=== PATIENT | male | born 1950 | race Caucasian/White ===

== ENCOUNTER 2023-04-01 11:01 | Outpatient (REF) | payer MEDICARE, SELFPAY | END 2023-04-01 11:02 | disposition home or self-care (01) | LOC: HO.BBR 11:01 | PROVIDERS: Visit Provider Internal Medicine | DX: D45 Polycythemia vera (principal) | CPT/HCPCS: 85014; 85018; 99195 ==

== ENCOUNTER 2023-04-08 14:01 | Outpatient (REF) | payer MEDICARE, SELFPAY | END 2023-04-08 14:02 | disposition home or self-care (01) | LOC: HO.BBR 14:01 | PROVIDERS: Visit Provider Internal Medicine | DX: D45 Polycythemia vera (principal) | CPT/HCPCS: 85018 ==

== ENCOUNTER 2023-04-19 14:58 | Outpatient (REF) | payer MEDICARE, SELFPAY | END 2023-04-19 14:59 | disposition home or self-care (01) | LOC: HO.BBR 14:58 | PROVIDERS: Visit Provider Internal Medicine | DX: D45 Polycythemia vera (principal) | CPT/HCPCS: 85018; 99195 ==

== ENCOUNTER 2023-05-17 11:01 | Outpatient (REF) | payer MEDICARE, SELFPAY | END 2023-05-17 11:02 | disposition home or self-care (01) | LOC: HO.BBR 11:01 | PROVIDERS: Visit Provider Internal Medicine | DX: D45 Polycythemia vera (principal) | CPT/HCPCS: 85014; 85018; 99195 ==

== ENCOUNTER 2023-06-02 14:01 | Outpatient (REF) | payer MEDICARE, SELFPAY | END 2023-06-02 14:02 | disposition home or self-care (01) | LOC: HO.BBR 14:01 | PROVIDERS: Visit Provider Internal Medicine | DX: D45 Polycythemia vera (principal) | CPT/HCPCS: 85014; 85018; 99195 ==

== ENCOUNTER 2023-06-16 14:03 | Outpatient (REF) | payer MEDICARE, SELFPAY | END 2023-06-16 14:04 | disposition home or self-care (01) | LOC: HO.BBR 14:03 | PROVIDERS: Visit Provider Internal Medicine | DX: D45 Polycythemia vera (principal) | CPT/HCPCS: 85018; 99195 ==

== ENCOUNTER 2023-06-29 14:01 | Outpatient (REF) | payer MEDICARE, SELFPAY | END 2023-06-29 14:02 | disposition home or self-care (01) | LOC: HO.BBR 14:01 | PROVIDERS: Visit Provider Internal Medicine | DX: D75.1 Secondary polycythemia (principal) | CPT/HCPCS: 85014; 85018; 99195 ==

== ENCOUNTER 2023-07-14 13:56 | Outpatient (REF) | payer MEDICARE, SELFPAY | END 2023-07-14 13:57 | disposition home or self-care (01) | LOC: HO.BBR 13:56 | PROVIDERS: Visit Provider Internal Medicine | DX: D75.1 Secondary polycythemia (principal) | CPT/HCPCS: 85018; 99195 ==

== ENCOUNTER 2023-07-27 13:58 | Outpatient (REF) | payer MEDICARE, SELFPAY | END 2023-07-27 13:59 | disposition home or self-care (01) | LOC: HO.BBR 13:58 | PROVIDERS: Visit Provider Internal Medicine | DX: D75.1 Secondary polycythemia (principal) | CPT/HCPCS: 85014; 85018; 99195 ==

== ENCOUNTER 2023-08-17 14:06 | Outpatient (REF) | payer MEDICARE, SELFPAY | END 2023-08-17 14:07 | disposition home or self-care (01) | LOC: HO.BBR 14:06 | PROVIDERS: Visit Provider Internal Medicine | DX: D75.1 Secondary polycythemia (principal) | CPT/HCPCS: 85014; 85018; 99195 ==

== ENCOUNTER 2023-10-19 14:00 | Outpatient (REF) | payer MEDICARE, SELFPAY | END 2023-10-19 14:01 | disposition home or self-care (01) | LOC: HO.BBR 14:00 | PROVIDERS: Visit Provider Internal Medicine | DX: D75.1 Secondary polycythemia (principal) | CPT/HCPCS: 85018 ==

== ENCOUNTER 2024-02-28 14:03 | Outpatient (REF) | payer MEDICARE, SELFPAY | END 2024-02-28 14:04 | disposition home or self-care (01) | LOC: HO.BBR 14:03 | PROVIDERS: Visit Provider Internal Medicine | DX: D45 Polycythemia vera (principal) | CPT/HCPCS: 85018; 99195 ==

== ENCOUNTER 2024-04-04 12:15 | Outpatient (REF) | payer MEDICARE, SELFPAY | END 2024-04-04 12:16 | disposition home or self-care (01) | LOC: HO.BBR 12:15 | PROVIDERS: Visit Provider Internal Medicine | DX: D45 Polycythemia vera (principal) | CPT/HCPCS: 85018; 99195 ==

== ENCOUNTER 2024-07-24 14:10 | Outpatient (REF) | payer MEDICARE, SELFPAY | END 2024-07-24 14:11 | disposition home or self-care (01) | LOC: HO.BBR 14:10 | PROVIDERS: Visit Provider Internal Medicine | DX: D45 Polycythemia vera (principal) | CPT/HCPCS: 85014; 85018; 99195 ==

== ENCOUNTER 2024-08-16 13:08 | Outpatient (REF) | payer MEDICARE, SELFPAY ==
--- OUTSIDE RECORDS SUMMARY | 2024-08-16 13:20 | XMS_ITS | Clinical Summary ---
Author Organization [facility] Address [address] [place] [address] Care Team Providers Care Signal Person Name Role Phone Andrea Guaman MD Primary Care Provider [phone] Allergies Active Allergy Reactions Criticality Noted Date Comments Penicillins 03/01/2023 Medications No known medications Active Problems No known active problems Social History Tobacco Use Types Packs/Day Years Used Date Smoking Tobacco: Never Smokeless Tobacco: Never Tobacco Cessation:Counseling Given: Not Answered Alcohol Use Standard Drinks/Week Comments Yes 0 (1 standard drink = 0.6 oz pur e alcohol) Sex and Gender Information Value Date Recorded Sex Assigned at Male 03/01/2023 10:32 AM EDT Gender Identity Not on file Sexual Orientation Not on file Job Start Date Occupation Industry Not on file Not on file Not on file Last Filed Vital Signs Vital Sign Reading Time Taken Comments Blood Pressure 127/74 12/05/2023 11:53 AM EDT Pulse 73 12/05/2023 11:53 AM EDT Temperature 36.6 ??C (97.8 ??F) 12/05/2023 11:53 AM E DT Respiratory Rate - - Oxygen Saturation 99% 12/05/2023 11:53 AM EDT Inhaled Oxygen Concentration - - Weight 59.9 kg (132 lb) 12/05/2023 11:53 AM EDT Height - - Body Mass Index - - Plan of Treatment Health Maintenance Due Date Last Done Comments Hepatitis C Screening 1950 Pneumococcal Vaccine (1 of 2 - PCV) 1956 Depression Screening 1962 Preventative Health Evaluation 1968 Shingrix-Zoster Vaccine (1 of 2) 1969 Colon Cancer Screening (Colonoscopy) 1995 Fall Risk Assessment 2015 COVID-19 Vaccine (5 - 2024-25 season) 2024 04/22/2023, 07/09/2021, 10/02/2020, Additional history exists Influenza Vaccine (#1) 2024 , 03/24/2022, 08/29/2019 RSV Adult > 60+ Yrs or (1 - 1-dose 75+ series) 2025 DTap / Tdap / Td (2 - Td or Tdap) 11/30/2030 11/30/2020 Hepatitis B Vaccines Aged Out No long er eligible based on patient's age to complete this topic RSV Ped < 20 months Aged Out No longe r eligible based on patient's age to complete this topic Care Teams Signal Person Relationship Specialty Start Date End Date Andrea Guaman MD [address] [place] [phone] PCP - General Family Medicine 03/01/23
--- OUTSIDE RECORDS SUMMARY | 2024-08-16 13:20 | XMS_ITS | Clinical Summary ---
Author Organization [facility] Address [address] [place] [address] Care Team Providers Care Manganese Heater Name Role Phone Pcp, No MD Primary Care Provider Unavailabl e Allergies Active Allergy Reactions Criticality Noted Date Comments Penicillins 11/24/2022 Social History Tobacco Use Types Packs/Day Years Used Date Smoking Tobacco: Never Assessed Sex and Gender Information Value Date Recorded Sex Assigned at Not on file Legal Sex Male 11:25 AM EST Gender Identity Not on file Sexual Orientation Not on file Plan of Treatment Health Maintenance Due Date Last Done Comments CT Colonography 1950 Colonoscopy 1950 Colorectal Cancer Screening 1950 FIT-DNA (Cologuard) 1950 FIT 1950 FOBT 1950 Flex Sigmoidoscopy - 5y 1950 HIV Screening 1950 Medicare Annual Wellness (AWV) 1950 Hepatitis C Screening 1968 Zoster Vaccines (1 of 2) 2000 Pneumococcal Vaccine, 65+ Years (1 of 1 - PCV) 2015 COVID-19 Vaccine ( season) 2024 04/22/2023, 07/09/2021, 10/02/2020, Additional history exists Influenza Vaccine (#1) 2024 , 03/24/2022, 08/29/2019 DTaP,Tdap,and Td Vaccines (2 - Td or Tdap) 11/30/2030 11/30/2020 HPV Vaccines Aged Out No longer eligi ble based on patient's age to complete this topic Hepatitis A Vaccines Aged Out No long er eligible based on patient's age to complete this topic Meningococcal Vaccine Aged Out No lillie luigi eligible based on patient's age to complete this topic Insurance MEDICARE PART A & B Care Teams Manganese Heater Relationship Specialty Start Date End Date Becky William MD [address] [place] [address] PCP - General Internal Medicine 01/31/18
--- OUTSIDE RECORDS SUMMARY | 2024-08-16 13:20 | XMS_ITS | Encounter Summary ---
Author Organization [facility] Address [address] [place] [address] Care Team Providers Care Loader Machine Name Role Phone Andrea Guaman DO Primary Care Provider [phone] Encounter Details Date Type Department Care Team (Late st Contact Info) Description 07/24/2024 Telephone [facility] Hematology Oncology [address] [place] [address] Ute Bonilla MD [address] [place] [address] Social History Tobacco Use Types Packs/Day Years Used Date Smoking Tobacco: Never Smokeless Tobacco: Never Alcohol Use Standard Drinks/Week Comments Yes 0 (1 standard drink = 0.6 oz pur e alcohol) Sex and Gender Information Value Date Recorded Sex Assigned at Not on file Legal Sex Male 1:32 PM EST Gender Identity Not on file Sexual Orientation Not on file documented as of this encounter Progress Notes * Abhijit Davis MA - 07/24/2024 3:51 PM EST Relayed message to Dr. Bonilal, he agreed to changing therapeutic phlebotomy order to monthly draws. Returned call to pt and informed him of this plan, pt agrees. New order has been faxed over to [facility]. * Namita Sierra - 07/24/2024 3:10 PM EST Patient requesting adjustment to an open order for phlebotomy as he was not able to get enough out today and the current order stands at every 3 months documented in this encounter Plan of Treatment Upcoming Encounters Date Type Department Care Team (Late st Contact Info) Description 03/13/2025 11:00 AM EDT Office Visit [facility] Hematology Oncology [address] [place] [phone] Ute Bonilla MD [address] [place] [address] documented as of this encounter Visit Diagnoses Not on filedocumented in this encounter Care Teams Loader Machine Relationship Specialty Start Date End Date Andrea Guaman DO [address] [place], [place] PCP - General 03/01/23 documented as of this encounter
--- OUTSIDE RECORDS SUMMARY | 2024-08-16 13:20 | XMS_ITS | Clinical Summary ---
Author Organization [facility] Address [address] [place] [address] Phone Care Team Providers Care Route Agent Name Role Phone Andrea Guaman DO Primary Care Provider [phone] Allergies Active Allergy Reactions Criticality Noted Date Comments Penicillins 03/01/2023 Medications No known medications Encounters Date Type Department Care Team Description 07/24/2024 Telephone [facility] Hematology Oncology [address] [place] [address] Ute Bonilla MD 06/12/2024 11:00 AM EST Office Visit [facility] Hematology Oncology [address] [place] [address] Ute Bonilla MD Polycythemia vera (CMS/HCC) (Primary Dx) from Last 3 Months Immunizations Name Administration Dates Next Due Pfizer SARS-CoV-2 COVID-19, mRNA, LNP-S, preservative free 07/09/2021,10/02/2020,09/11/2020 Social History Tobacco Use Types Packs/Day Years [...] on file Sexual Orientation Not on file Obstetrics History Last Filed Vital Signs Vital Sign Reading Time Taken Comments Blood Pressure 126/70 06/12/2024 11:22 AM EST Pulse 58 06/12/2024 11:22 AM EST Temperature 36.6 ??C (97.8 ??F) 06/12/2024 11:[address] Respiratory Rate - - Oxygen Saturation 100% 06/12/2024 11:22 AM EST Inhaled Oxygen Concentration - - Weight 60.8 kg (134 lb) 06/12/2024 11:22 AM EST Height - - Body Mass Index - - Plan of Treatment Upcoming Encounters Date Type Department Care Team (Late st Contact Info) Description 03/13/2025 11:00 AM EDT Office Visit [facility] Hematology Oncology [address] [place] [phone] Ute Bonilla MD [address] [place] [address] Health Maintenance Due Date Last Done Comments Pneumococcal Vaccine: 50+ Years (1 of 2 - PCV) 1969 Zoster Vaccines (1 of 2) 1969 Cholesterol Screening (Lipid Panel) 06/01/2022 Colorectal Cancer Screening: Colonoscopy 06/01/2022 Depression Screening 06/01/2022 Falls Risk Assessment 06/01/2022 Hepatitis C Screening 06/01/2022 Social Influencers of Health Screening 06/01/2022 Medicare Annual Wellness Visit 06/18/2023 06/18/2022 COVID-19 Vaccine ( season) 2024 04/22/2023, 03/24/2022, 07/09/2021, Additional history exists Influenza Vaccine (#1) 2024 , 03/24/2022, 08/29/2019 RSV Immunization Patients 60+ Years Old (1 - 1-dose 75+ series) 2025 DTaP,Tdap,and Td Vaccines (2 - Td or Tdap) 11/30/2030 11/30/2020 HIB Vaccines Aged Out No longer eligi ble based on patient's age to complete this topic HPV Vaccines Aged Out No longer eligi ble based on patient's age to complete this topic Hepatitis A Vaccines Aged Out No long er eligible based on patient's age to complete this topic Hepatitis B Vaccines Aged Out No long er eligible based on patient's age to complete this topic IPV Vaccines Aged Out No longer eligi ble based on patient's age to complete this topic MMR Vaccines Aged Out No longer eligi ble based on patient's age to complete this topic Meningococcal ACWY Vaccine Aged Out N o longer eligible based on patient's age to complete this topic Meningococcal B Vacine Aged Out No lo nger eligible based on patient's age to complete this topic RSV Immunization Patients Under 20 months Aged Out No longer eligible based on patient's age to complete this topic Varicella Vaccines Aged Out No longer eligible based on patient's age to complete this topic Procedures Procedure Name Priority Date/Time Associated Diagnosis Comments ..MISCELLANEOUS REFERENCE LAB TEST 06/12/2024 ..MISCELLANEOUS REFERENCE LAB TEST 06/12/2024 ..MISCELLANEOUS REFERENCE LAB TEST 06/12/2024 ..MISCELLANEOUS REFERENCE LAB TEST 06/12/2024 from Last 3 Months Results * Miscellaneous reference lab test (06/12/2024) Only the most recent of4 resultswithin the time period is included. us Provider Onbase MD LAB BLOOD ORDERABLES Final Re sult from Last 3 Months Insurance MEDICARE [facility] Care Teams Route Agent Relationship Specialty Start Date End Date Andrea Guaman DO [address] [place] [address] PCP - General 03/01/23
== END 2024-08-16 13:09 | disposition home or self-care (01) ==
LOC: HO.BBR 13:08
PROVIDERS: Visit Provider Internal Medicine
DX: D45 Polycythemia vera (principal)
CPT/HCPCS: 85018; 99195

== ENCOUNTER 2024-09-27 13:05 | Outpatient (REF) | payer MEDICARE, SELFPAY | END 2024-09-27 13:06 | disposition home or self-care (01) | LOC: HO.BBR 13:05 | PROVIDERS: Visit Provider Internal Medicine | DX: D45 Polycythemia vera (principal) | CPT/HCPCS: 85014; 85018; 99195 ==

== ENCOUNTER 2025-01-29 12:59 | Outpatient (REF) | payer MEDICARE, SELFPAY ==
--- OUTSIDE RECORDS SUMMARY | 2025-01-29 13:46 | XMS_ITS ---
Author Name [facility] Organization Unknown Encounters Encounter Type Encounter Reason Primary Diagnosis Location Date Ambulatory Chronic sinusiti s, unspecified [facility] 11/24/2022 Care Team Organization Name Specialty Phone Email Start Date End Da te [facility] NO PCP Primary Care 11/24/2022 [facility] PCP,No Primary Care 11/24/2022
--- OUTSIDE RECORDS SUMMARY | 2025-01-29 13:46 | XMS_ITS | Clinical Summary ---
Author Organization [facility] Address [address] [place] [address] Phone Care Team Providers Care Medical Administrative Technician Name Role Phone Andrea Guaman DO Primary Care Provider [phone] Allergies Active Allergy Reactions Criticality Noted Date Comments Penicillins 03/01/2023 Medications No known medications Immunizations Name Administration Dates Next Due Pfizer [...] 58 06/12/2024 11:22 AM EST Temperature 36.6 C (97.8 F) 06/12/2024 11:22 AM EST Respiratory Rate - - Oxygen Saturation 100% 06/12/2024 11:22 AM EST Inhaled Oxygen Concentration - - Weight 60.8 kg (134 lb) 06/12/2024 11:22 AM EST Height - - Body Mass Index - - Plan of Treatment Upcoming Encounters Date Type Department Care Team (Late st Contact Info) Description 03/13/2025 11:00 AM EDT Office Visit [facility] Hematology Oncology [address] [place] [phone] Ute Bonilla MD [address] [place] [address] Health Maintenance Due Date Last Done Comments Zoster Vaccines (1 of 2) 1969 Pneumococcal Vaccine: 50+ Years (1 of 1 - PCV) 2000 Cholesterol Screening (Lipid Panel) 06/01/2022 Colorectal Cancer Screening: Colonoscopy 06/01/2022 Falls Risk Assessment 06/01/2022 Hepatitis C Screening 06/01/2022 Social Influencers of Health Screening 06/01/2022 Medicare Annual Wellness Visit 06/18/2023 06/18/2022 COVID-19 Vaccine ( season) 2024 04/22/2023, 03/24/2022, 07/09/2021, Additional history exists Depression Screening 07/04/2024 Influenza Vaccine (#1) 2025 , 03/24/2022, 08/29/2019 RSV Immunization Adult Patients (1 - 1-dose 75+ series) 2025 DTaP,Tdap,and [...] age to complete this topic Meningococcal B Vaccine Aged Out No l onger eligible based on patient's age to complete this topic RSV Immunization Patients Under 20 months Aged Out No longer eligible based on patient's age to complete this topic Varicella Vaccines Aged Out No longer eligible based on patient's age to complete this topic Insurance MEDICARE [id number] Care Teams Medical Administrative Technician Relationship Specialty Start Date End Date Andrea Guaman DO [address] [place], [place] PCP - General 03/01/23
--- OUTSIDE RECORDS SUMMARY | 2025-01-29 13:46 | XMS_ITS | Clinical Summary ---
Author Organization [facility] Address [address] [place] [address] Care Team Providers Care Clothes Separator Name Role Phone Andrea Guaman MD Primary Care Provider [phone] Allergies Active Allergy Reactions Criticality Noted Date [...] 73 12/05/2023 11:53 AM EDT Temperature 36.6 C (97.8 F) 12/05/2023 11:53 AM EDT Respiratory Rate - - Oxygen Saturation 99% 12/05/2023 11:53 AM EDT Inhaled Oxygen Concentration - - Weight 59.9 kg (132 lb) 12/05/2023 11:53 AM EDT Height - - Body Mass Index - - Plan of Treatment Health Maintenance Due Date Last Done Comments Hepatitis C Screening 1950 Depression Screening 1962 Preventative Health Evaluation 1968 Colon Cancer Screening (Colonoscopy) 1995 Shingrix-Zoster Vaccine (1 of 2) 2000 Fall Risk Assessment 2015 Pneumococcal Vaccine (1 of 1 - PCV) 2015 COVID-19 Vaccine ( season) 2024 04/22/2023, 07/09/2021, 10/02/2020, Additional history exists Influenza Vaccine (#1) 2025 , 03/24/2022, 08/29/2019 RSV Adult > 60+ [...] age to complete this topic Care Teams Clothes Separator Relationship Specialty Start Date End Date Andrea Guaman MD [address] [place] [phone] PCP - General Family Medicine 03/01/23
--- OUTSIDE RECORDS SUMMARY | 2025-01-29 13:46 | XMS_ITS | Clinical Summary ---
Author Organization [facility] Address [address] [place] [address] Care Team Providers Care Detector Car Operator Name Role Phone Pcp, No MD Primary [...] Wellness (AWV) 1950 Hepatitis C Screening 1968 Pneumococcal Vaccine, 50+ Years (1 of 1 - PCV) 2000 Zoster Vaccines (1 of 2) 2000 COVID-19 Vaccine ( - season) 2024 04/22/2023, 07/09/2021, 10/02/2020, Additional history exists Influenza Vaccine (#1) 2025 , 03/24/2022, 08/29/2019 DTaP,Tdap,and Td Vaccines (2 [...] MEDICARE PART A & B Care Teams Detector Car Operator Relationship Specialty Start Date End Date Becky William MD [address] [place] [address] PCP - General Internal Medicine 01/31/18
== END 2025-01-29 13:00 | disposition home or self-care (01) ==
LOC: HO.BBR 12:59
PROVIDERS: Visit Provider Internal Medicine
DX: D45 Polycythemia vera (principal)
CPT/HCPCS: 85018; 99195

== ENCOUNTER 2025-02-27 13:04 | Outpatient (REF) | payer MEDICARE, SELFPAY ==
--- OUTSIDE RECORDS SUMMARY | 2025-02-27 13:34 | XMS_ITS | Clinical Summary ---
Author Organization [facility] Address [address] [place] [address] Phone Care Team Providers Care Granite Polisher Apprentice Name Role Phone Andrea Guaman DO Primary Care Provider [phone] Allergies Active Allergy Reactions Criticality Noted Date [...] Description 03/13/2025 11:00 AM EDT Office Visit [facility] Hematology Oncology [address] [place] [phone] Ute Bonilla MD [address] [place] [address] Health Maintenance Due Date Last Done Comments [...] age to complete this topic Insurance MEDICARE [facility] Care Teams Granite Polisher Apprentice Relationship Specialty Start Date End Date Andrea Guaman DO [address] [place], [place] PCP - General 03/01/23
--- OUTSIDE RECORDS SUMMARY | 2025-02-27 13:34 | XMS_ITS | Clinical Summary ---
Author Organization [facility] Address [address] [place] [address] Care Team Providers Care Hadoop Software Engineer Name Role Phone Andrea Guaman MD Primary Care Provider [phone] Allergies Active Allergy Reactions Criticality Noted Date [...] age to complete this topic Care Teams Hadoop Software Engineer Relationship Specialty Start Date End Date Andrea Guaman MD [address] [place] [phone] PCP - General Family Medicine 03/01/23
--- OUTSIDE RECORDS SUMMARY | 2025-02-27 13:34 | XMS_ITS | Clinical Summary ---
Author Organization [facility] Address [address] [place] [address] Care Team Providers Care System Configuration Specialist Name Role Phone Pcp, No MD Primary [...] MEDICARE PART A & B Care Teams System Configuration Specialist Relationship Specialty Start Date End Date Becky William MD [address] [place] [address] PCP - General Internal Medicine 01/31/18
== END 2025-02-27 13:05 | disposition home or self-care (01) ==
LOC: HO.BBR 13:04
PROVIDERS: Visit Provider Internal Medicine
DX: D45 Polycythemia vera (principal)
CPT/HCPCS: 85018; 99195

== ENCOUNTER 2025-03-27 13:02 | Outpatient (REF) | payer MEDICARE, SELFPAY ==
--- OUTSIDE RECORDS SUMMARY | 2025-03-27 15:27 | XMS_ITS | Clinical Summary ---
Author Organization [facility] Address [address] [place] [address] Care Team Providers Care Signs And Displays Salesperson Name Role Phone Andrea Guaman MD Primary Care Provider [phone] Allergies Active Allergy Reactions Criticality Noted Date [...] - PCV) 2015 COVID-19 Vaccine ( season) 2025 04/22/2023, 07/09/2021, 10/02/2020, Additional history exists Influenza [...] age to complete this topic Care Teams Signs And Displays Salesperson Relationship Specialty Start Date End Date Andrea Guaman MD [address] [place] [phone] PCP - General Family Medicine 03/01/23
--- OUTSIDE RECORDS SUMMARY | 2025-03-27 15:27 | XMS_ITS | Clinical Summary ---
Author Organization [facility] Address [address] [place] [address] Care Team Providers Care Lead Nurse Name Role Phone Pcp, No MD Primary [...] of 2) 2000 COVID-19 Vaccine ( - 2024- season) 2025 04/22/2023, 07/09/2021, 10/02/2020, Additional history [...] MEDICARE PART A & B Care Teams Lead Nurse Relationship Specialty Start Date End Date Becky William MD [address] [place] [address] PCP - General Internal Medicine 01/31/18
--- OUTSIDE RECORDS SUMMARY | 2025-03-27 15:27 | XMS_ITS | Clinical Summary ---
Author Organization [facility] Address [address] [place] [address] Phone Care Team Providers Care Delivery Recruiter Name Role Phone Andrea Guaman Primary Care Provider [phone] Allergies Active Allergy Reactions Criticality Noted Date [...] 06/01/2022 Medicare Annual Wellness Visit 06/18/2023 06/18/2022 Depression Screening 07/04/2024 COVID-19 Vaccine ( season) 2025 04/22/2023, 03/24/2022, 07/09/2021, Additional history exists Influenza Vaccine (#1) 2025 [...] age to complete this topic Insurance MEDICARE [facility] Care Teams Delivery Recruiter Relationship Specialty Start Date End Date Andrea Guaman DO [address] [place], [place] PCP - General 03/01/23
== END 2025-03-27 13:03 | disposition home or self-care (01) ==
LOC: HO.BBR 13:02
PROVIDERS: Visit Provider Internal Medicine
DX: D45 Polycythemia vera (principal)
CPT/HCPCS: 85014; 85018; 99195